=== PATIENT | male | born 1965 | race Caucasian/White ===

== ENCOUNTER 2024-09-07 22:04 | Inpatient (IN) | payer OTHER ==
[2024-09-07 22:14] LABS: Actual Bicarbonate (HCO3a) 21.8 mEq/L (22-28); Analyzer IN Cardio ER; Base Excess (BEa) -1.8 mEq/L (-2.0 to +3.0); CO2 Tension 33.1 mmHg (35.0-45.0); Calcium, Ionized (arterial) 1.06 mmol/L (1.12-1.30); Carboxyhemoglobin (COHb) 0.3 gm% (0.0-3.0); Hematocrit-ABG 34 % (42.0-52.0); Hemoglobin (Hb) 11.7 g/dL (14.0-18.0); O2 Tension (PaO2), arterial 396.1 mmHg (80.0-100.0); Potassium - ABG Lab 3.74 mmol/L (3.70-5.30); pH, Arterial 7.436 (7.35-7.45)
[2024-09-07 22:31] LABS: ALV-art Gradient 275.525 mmHg (0-20); Puncture Site Right Radial artery
[2024-09-07 22:45] LABS: Lipase 29 U/L (8-78)
[2024-09-07 22:47] LABS: Acetaminophen Less than 10 mcg/mL (Less than 10); Alcohol Less than 10.0 mg/dL (Less than 10); Hematocrit 28.7 % (42.0-52.0); Mean Corpuscular HGB CONC 38.3 g/dL (32.0-36.0); Mean Corpuscular Hemoglobin 30.1 pg (27.0-31.0); Mean Corpuscular Volume 78.4 fL (78.0-98.0); Mean Platelet Volume 10.7 fL (7.4-10.4); Platelet Count 311 10x3/uL (130-400); RBC Distribution Width 12.3 % (11.5-14.5); Red Blood Cell (RBC) Count 3.66 mill/uL (4.70-6.10); Salicylate Less than 8.0 mg/dL (Less than 8.0)
[2024-09-07 22:50] LABS: ALT (SGPT) 65 U/L (8-55); AST (SGOT) 35 U/L (5-34); Albumin 3.5 g/dL (3.5-5.0); Alkaline Phosphatase 72 U/L (40-110); Anion Gap 11 mmol/L (10-20); BUN (Urea Nitrogen) 15 mg/dL (8.4-25.7); Bilirubin, Total 0.6 mg/dL (0.2-1.2); CK (CPK) 58 U/L (30-200); Calc. Creatinine Clearance 0 mL/min (70-130); Calcium 7.8 mg/dL (7.8-10.44); Carbon Dioxide 23 mmol/L (22-29); Chloride 85 mmol/L (98-107); Estimated GFR 52; Globulin 2.3 g/dL (2.4-3.5); Glucose 125 mg/dL (70-105); Potassium 3.9 mmol/L (3.5-5.1); Protein, Total 5.8 g/dL (6.0-8.3); Sodium 115 mmol/L (136-145)
[2024-09-07 22:53] LABS: Troponin I Less than 0.010 ng/mL (< 0.028)
[2024-09-07 23:10] LABS: #Basophils 0.03 10x3/uL (0.0-0.2); #Eosinophils Less than 0.03 10x3/uL (0.0-0.7); %Basophils 0.3 % (0.0-1.0); %Eosinophils 0.2 % (0.0-10.0); %Lymphocytes 9.5 % (21.0-51.0); %Monocytes 10.8 % (0.0-10.0); %Neutrophils 76.8 % (42.0-75.0)
[2024-09-07 23:14] LABS: Anion Gap 9 mmol/L (10-20); BUN (Urea Nitrogen) 14 mg/dL (8.4-25.7); Calc. Creatinine Clearance 0 mL/min (70-130); Calcium 7.2 mg/dL (7.8-10.44); Carbon Dioxide 22 mmol/L (22-29); Chloride 89 mmol/L (98-107); Estimated GFR 61; Glucose 127 mg/dL (70-105); Potassium 3.3 mmol/L (3.5-5.1); Sodium 117 mmol/L (136-145)
[2024-09-07] MEDS ORDERED: fentaNYL 50 mcg/mL 1 mL Vial ONE (23:32)
[2024-09-07] MEDS ORDERED: Lorazepam 2 MG/ML VIAL SLOW IVP PRN ×2 (23:41→23:45)
[2024-09-07] MEDS ORDERED: Morphine 2 MG/ML VIAL SLOW IVP PRN (23:45)
[2024-09-07] MEDS ORDERED: DISCONTINUE PREVIOUS NARCOTIC PAIN MEDICATIONS AND BENZODIAZEPINES FS SCH (23:45)
[2024-09-07] MEDS ORDERED: Propofol BOLUS 1,000 MG/100 ML VIAL IV PRN (23:45)
[2024-09-07] MEDS ORDERED: Propofol 1,000 MG/100 ML VIAL IV PRN (23:45)
[2024-09-07] MEDS ORDERED: Fentanyl CADD 100 ML IV SCH (23:45)
[2024-09-07] MEDS ORDERED: Fentanyl BOLUS 250 ML IVPB PRN (23:45)
[2024-09-07] MEDS ORDERED: Dextrose 5% in Water 1,000 ML IV PRN (23:50)
[2024-09-07] MEDS ORDERED: Dextrose 50% Abboject 50 ML SYRINGE SLOW IVP PRN (23:50)
[2024-09-07] MEDS ORDERED: Insulin Lispro 100 UNIT/ML 10 ML VIAL SC PRN ×2 (23:50)
[2024-09-07] MEDS ORDERED: Electrolyte Replacement Protocol 1 EACH FS PRN (23:50)
[2024-09-07] MEDS ORDERED: Glucagon 1 MG/ML KIT IM PRN (23:50)
[2024-09-08] MEDS ORDERED: Dexamethasone 10 MG/ML VIAL ONE (00:08)
[2024-09-08] MEDS ORDERED: levETIRAcetam 500 MG (5 mL) VIAL ONE (00:09)
[2024-09-08 00:23] LABS: Bacteria/HPF None Seen HPF (None Seen); Bilirubin Negative (Negative); Blood, Urine Negative (Negative); CAUTI Indications for Culture Alt mental st,lethar; Clarity Clear (Clear); Glucose, Urine (Dipstick) 30 mg/dL (Negative); Ketone, Urine Negative (Negative); Leukocyte Negative Leu/uL (Negative); Nitrite Negative (Negative); Protein, Urine (Dipstick) 30 mg/dL (Neg-Trace); RBC/HPF 0-3 HPF (0-3); Specific Gravity, Urine 1.013 (1.002-1.036); Squamous Epithelial 0-3 HPF (0-3); Urobilinogen Normal mg/dL (Less than 2); WBC/HPF 0-3 HPF (0-3)
[2024-09-08 00:24] LABS: Urine Culture Reflex No No
[2024-09-08] MEDS ORDERED: fentaNYL 50 mcg/mL 1 mL Vial ONE (00:25)
[2024-09-08 00:30] LABS: Amphetamine Not Detected (NotDetected); Barbiturates Screen Not Detected (NotDetected); Benzodiazepine Screen Not Detected (NotDetected); Cocaine Metabolite Screen Not Detected (NotDetected); Methadone Not Detected (NotDetected); Methamphetamine Not Detected (NotDetected); Opiate Screen Not Detected (NotDetected); Oxycodone Screen Not Detected (NotDetected); Phencyclidine (PCP) Not Detected (NotDetected); THC/Cannabinoid Screen Not Detected (NotDetected); Tricyclic Screen Not Detected (NotDetected)
[2024-09-08] MEDS ORDERED: Acetaminophen 650 MG Suppository PR PRN (00:44)
[2024-09-08] MEDS ORDERED: Acetaminophen 325 MG TAB PO PRN (00:44)
[2024-09-08] MEDS ORDERED: Ondansetron PF 4 MG/2 ML Vial IVP PRN (00:44)
[2024-09-08] MEDS ORDERED: Ondansetron ODT 4 MG TAB PO PRN (00:44)
[2024-09-08] MEDS ORDERED: Calcium Carbonate 500 MG ChewTAB PO PRN (00:44)
[2024-09-08] MEDS ORDERED: Propofol 1,000 MG/100 ML VIAL IV ONE (01:39)
[2024-09-08 01:40] LABS: Sodium 117 mmol/L (136-145)
[2024-09-08] MEDS ORDERED: Lorazepam 2 MG/ML VIAL ONE (01:52)
[2024-09-08 04:04] LABS: Anion Gap 9 mmol/L (10-20); BUN (Urea Nitrogen) 14 mg/dL (8.4-25.7); Calc. Creatinine Clearance 0 mL/min (70-130); Calcium 7.6 mg/dL (7.8-10.44); Carbon Dioxide 23 mmol/L (22-29); Chloride 89 mmol/L (98-107); Estimated GFR 66; Glucose 133 mg/dL (70-105); Magnesium 1.6 mg/dL (1.6-2.6); Potassium 3.9 mmol/L (3.5-5.1); Sodium 117 mmol/L (136-145)
[2024-09-08 04:08] LABS: #Basophils Less than 0.03 10x3/uL (0.0-0.2); #Eosinophils Less than 0.03 10x3/uL (0.0-0.7); %Basophils 0.1 % (0.0-1.0); %Lymphocytes 7.4 % (21.0-51.0); %Monocytes 3.1 % (0.0-10.0); %Neutrophils 87.4 % (42.0-75.0); Hematocrit 27.3 % (42.0-52.0); Hemoglobin 10.6 g/dL (14.0-18.0); Mean Corpuscular HGB CONC 38.8 g/dL (32.0-36.0); Mean Corpuscular Hemoglobin 30.6 pg (27.0-31.0); Mean Corpuscular Volume 78.9 fL (78.0-98.0); Mean Platelet Volume 10.4 fL (7.4-10.4); Platelet Count 275 10x3/uL (130-400); RBC Distribution Width 12.5 % (11.5-14.5); Red Blood Cell (RBC) Count 3.46 mill/uL (4.70-6.10)
[2024-09-08] MEDS: Ventilator Sedation Protocol 1 EACH FS ONE (04:21)
[2024-09-08] MEDS: Sodium Chloride 3% 500 ML IVPB SCH (04:21)
[2024-09-08] MEDS: Magnesium 2 GM/50 ML(in water) 2 GM in Premix 1 BAG IVPB SCH (04:22)
[2024-09-08] MEDS: Piperacillin/Tazobactam 3.375 GM in Sodium Chloride 0.9% 100 ML IVPB SCH ×2 (04:22→05:51)
[2024-09-08] MEDS: Potassium Chloride 20 MEQ in Premix 1 BAG IVPB SCH (04:23)
[2024-09-08 05:11] VITALS: BMI 35.4
[2024-09-08 05:45] LABS: Sodium 119 mmol/L (136-145)
[2024-09-08 07:33] LABS: Sodium 118 mmol/L (136-145)
[2024-09-08] MEDS: Heparin 5,000 UNITS/ML VIAL SC SCH (09:09)
[2024-09-08] MEDS: Famotidine/PF 20 mg/2ml Vial SLOW IVP SCH (09:09)
[2024-09-08] MEDS: FLU (Fluarix Triv) TS24-25(6MOS UP)/PF 45 MCG/0.5 ML Syringe IM ONE (09:09)
[2024-09-08] MEDS: Famotidine 20 MG TAB PER TUBE SCH (09:10)
[2024-09-08 10:12] LABS: Sodium 123 mmol/L (136-145)
[2024-09-08 13:17] LABS: Sodium 125 mmol/L (136-145)
[2024-09-08 20:04] LABS: Anion Gap 11 mmol/L (10-20); BUN (Urea Nitrogen) 10 mg/dL (8.4-25.7); Calc. Creatinine Clearance 140 mL/min (70-130); Calcium 8.3 mg/dL (7.8-10.44); Carbon Dioxide 22 mmol/L (22-29); Chloride 99 mmol/L (98-107); Estimated GFR 88; Glucose 99 mg/dL (70-105); Potassium 4.1 mmol/L (3.5-5.1); Sodium 128 mmol/L (136-145)
[2024-09-08] MEDS: Dextrose 5% in Water 1,000 ML IV SCH (21:19)
[2024-09-09 05:25] LABS: #Basophils Less than 0.03 10x3/uL (0.0-0.2); #Eosinophils Less than 0.03 10x3/uL (0.0-0.7); %Basophils 0.2 % (0.0-1.0); %Eosinophils 0.1 % (0.0-10.0); %Lymphocytes 12.7 % (21.0-51.0); %Neutrophils 77.2 % (42.0-75.0); Hematocrit 29.6 % (42.0-52.0); Hemoglobin 10.6 g/dL (14.0-18.0); Mean Corpuscular HGB CONC 35.8 g/dL (32.0-36.0); Mean Corpuscular Hemoglobin 30.3 pg (27.0-31.0); Mean Corpuscular Volume 84.6 fL (78.0-98.0); Mean Platelet Volume 10.4 fL (7.4-10.4); Platelet Count 316 10x3/uL (130-400); RBC Distribution Width 12.9 % (11.5-14.5)
[2024-09-09 05:51] LABS: Anion Gap 11 mmol/L (10-20); BUN (Urea Nitrogen) 10 mg/dL (8.4-25.7); Calc. Creatinine Clearance 156 mL/min (70-130); Calcium 8.3 mg/dL (7.8-10.44); Carbon Dioxide 22 mmol/L (22-29); Chloride 100 mmol/L (98-107); Estimated GFR 99; Glucose 104 mg/dL (70-105); Potassium 4.3 mmol/L (3.5-5.1); Sodium 129 mmol/L (136-145)
[2024-09-09 09:41] LABS: Hematocrit 30.1 % (42.0-52.0); Hemoglobin 10.9 g/dL (14.0-18.0); Mean Corpuscular HGB CONC 36.2 g/dL (32.0-36.0); Mean Corpuscular Hemoglobin 30.4 pg (27.0-31.0); Mean Corpuscular Volume 83.8 fL (78.0-98.0); Mean Platelet Volume 10.4 fL (7.4-10.4); Platelet Count 310 10x3/uL (130-400); RBC Distribution Width 12.9 % (11.5-14.5); Red Blood Cell (RBC) Count 3.59 mill/uL (4.70-6.10)
[2024-09-09] MEDS: hydrALAZINE 20 MG/ML VIAL SLOW IVP PRN (10:11)
[2024-09-09] MEDS: DC Sedation Protocol FS ONE (10:27)
[2024-09-09 10:49] LABS: Anion Gap 10 mmol/L (10-20); BUN (Urea Nitrogen) 10 mg/dL (8.4-25.7); Calc. Creatinine Clearance 170 mL/min (70-130); Calcium 8.2 mg/dL (7.8-10.44); Carbon Dioxide 23 mmol/L (22-29); Chloride 99 mmol/L (98-107); Estimated GFR 102; Glucose 100 mg/dL (70-105); Potassium 4.1 mmol/L (3.5-5.1); Sodium 128 mmol/L (136-145)
[2024-09-09 14:41] VITALS: BMI 35.2
[2024-09-09 19:55] LABS: Anion Gap 10 mmol/L (10-20); BUN (Urea Nitrogen) 12 mg/dL (8.4-25.7); Calc. Creatinine Clearance 151 mL/min (70-130); Calcium 8.5 mg/dL (7.8-10.44); Carbon Dioxide 24 mmol/L (22-29); Chloride 99 mmol/L (98-107); Estimated GFR 98; Glucose 108 mg/dL (70-105); Hemoglobin A1c 4.7 % (4.0-6.0); Potassium 4.3 mmol/L (3.5-5.1); Sodium 129 mmol/L (136-145)
[2024-09-09] MEDS: Enoxaparin 30 MG (0.3 mL) SYRINGE SC SCH (20:22)
[2024-09-09] MEDS: Carvedilol 6.25 MG TAB PO SCH (20:23)
[2024-09-09] MEDS: carBAMazepine 200 MG TAB PO SCH (20:23)
[2024-09-09] MEDS: levETIRAcetam 500 MG TAB PO SCH (20:24)
[2024-09-09] MEDS: hydrALAZINE 25 MG TAB PO SCH (20:24)
[2024-09-09] MEDS: Gabapentin 300 MG CAP PO SCH (20:24)
[2024-09-10 06:30] LABS: Anion Gap 11 mmol/L (10-20); BUN (Urea Nitrogen) 10 mg/dL (8.4-25.7); Calc. Creatinine Clearance 180 mL/min (70-130); Calcium 8.3 mg/dL (7.8-10.44); Carbon Dioxide 23 mmol/L (22-29); Chloride 99 mmol/L (98-107); Estimated GFR 104; Glucose 90 mg/dL (70-105); Potassium 4.4 mmol/L (3.5-5.1); Sodium 129 mmol/L (136-145)
[2024-09-10 08:58] LABS: Hematocrit 31.2 % (42.0-52.0); Hemoglobin 11.1 g/dL (14.0-18.0); Mean Corpuscular HGB CONC 35.6 g/dL (32.0-36.0); Mean Corpuscular Hemoglobin 29.9 pg (27.0-31.0); Mean Corpuscular Volume 84.1 fL (78.0-98.0); Mean Platelet Volume 9.6 fL (7.4-10.4); Platelet Count 318 10x3/uL (130-400); RBC Distribution Width 12.6 % (11.5-14.5); Red Blood Cell (RBC) Count 3.71 mill/uL (4.70-6.10)
[2024-09-10] MEDS: Clopidogrel Bisulfate 75 MG TAB PO SCH (09:05)
[2024-09-10] MEDS: Aspirin 325 mg Enteric Coated Tablet PO SCH (09:05)
[2024-09-10] MEDS: Oxybutynin 5 MG TAB PO SCH (09:05)
[2024-09-10] MEDS: Lisinopril 20 MG TAB PO SCH (09:05)
[2024-09-10] MEDS: Pantoprazole 40 MG DR.TAB PO SCH (09:05)
[2024-09-10] MEDS: Ziprasidone 20 MG CAP PO SCH (09:05)
[2024-09-10] MEDS: Isosorbide Mononitrate 30 MG ER.TAB PO SCH (09:05)
[2024-09-10] MEDS: Atorvastatin Calcium 40 MG TAB PO SCH (09:06)
[2024-09-10] MEDS: Sertraline 25 MG TAB PO SCH (09:06)
[2024-09-10] MEDS: Furosemide 40 MG TAB PO SCH (16:35)
[2024-09-10] MEDS: Amlodipine 10 MG TAB PO SCH (16:36)
[2024-09-10 16:56] LABS: Anion Gap 9 mmol/L (10-20); BUN (Urea Nitrogen) 11 mg/dL (8.4-25.7); Calc. Creatinine Clearance 184 mL/min (70-130); Calcium 8.3 mg/dL (7.8-10.44); Carbon Dioxide 24 mmol/L (22-29); Chloride 102 mmol/L (98-107); Estimated GFR 105; Glucose 103 mg/dL (70-105); Potassium 4.2 mmol/L (3.5-5.1); Sodium 131 mmol/L (136-145)
[2024-09-11 06:06] LABS: ALT (SGPT) 56 U/L (8-55); AST (SGOT) 27 U/L (5-34); Albumin 3.2 g/dL (3.5-5.0); Alkaline Phosphatase 60 U/L (40-110); Anion Gap 10 mmol/L (10-20); BUN (Urea Nitrogen) 11 mg/dL (8.4-25.7); Bilirubin, Total 0.4 mg/dL (0.2-1.2); Calc. Creatinine Clearance 163 mL/min (70-130); Calcium 8.6 mg/dL (7.8-10.44); Carbon Dioxide 25 mmol/L (22-29); Chloride 100 mmol/L (98-107); Estimated GFR 101; Globulin 3.1 g/dL (2.4-3.5); Glucose 90 mg/dL (70-105); Magnesium 1.8 mg/dL (1.6-2.6); Potassium 4.2 mmol/L (3.5-5.1); Protein, Total 6.3 g/dL (6.0-8.3); Sodium 131 mmol/L (136-145)
[2024-09-11 07:45] VITALS: BP 163/79; TEMP 98.3
[2024-09-11 08:37] LABS: Hematocrit 30.6 % (42.0-52.0); Hemoglobin 10.7 g/dL (14.0-18.0); Mean Corpuscular Hemoglobin 29.9 pg (27.0-31.0); Mean Corpuscular Volume 85.5 fL (78.0-98.0); Mean Platelet Volume 9.4 fL (7.4-10.4); Platelet Count 298 10x3/uL (130-400); RBC Distribution Width 12.6 % (11.5-14.5); Red Blood Cell (RBC) Count 3.58 mill/uL (4.70-6.10)
[2024-09-11] MEDS: Furosemide 40 MG TAB PO SCH (08:40)
[2024-09-11] MEDS: Amlodipine 10 MG TAB PO SCH (08:40)
[2024-09-11] MEDS: Magnesium 2 GM/50 ML(in water) 2 GM in Premix 1 BAG IVPB SCH (08:41)
== END 2024-09-11 15:52 | DRG 208 ==
LOC: ERS 22:04 → CCU 22:42 → EEVIPCON 22:42 → CCU 09-08 02:02 → T4-A 09-09 12:24
PROVIDERS: ADMIT Student in an Organized Health Care Education/Training Program; ATTEND Internal Medicine
PROC: 4A033R1 Measurement of Arterial Saturation, Peripheral, Percutaneous Approach (ICD-10-PCS; 2024-09-07)
PROC: 5A1935Z Respiratory Ventilation, Less than 24 Consecutive Hours (ICD-10-PCS; principal; 2024-09-08)
PROC: XX20X89 Monitoring of Brain Electrical Activity, Computer-aided Detection and Notification, New Technology Group 9 (ICD-10-PCS; 2024-09-08)
DX: J96.01 Acute respiratory failure with hypoxia (principal); G93.41 Metabolic encephalopathy; I50.32 Chronic diastolic (congestive) heart failure; N17.9 Acute kidney failure, unspecified; I13.0 Hypertensive heart and chronic kidney disease with heart failure and stage 1 through stage 4 chronic kidney disease, or unspecified chronic kidney disease; E22.2 Syndrome of inappropriate secretion of antidiuretic hormone; R00.1 Bradycardia, unspecified; G40.909 Epilepsy, unspecified, not intractable, without status epilepticus; G89.29 Other chronic pain; E78.5 Hyperlipidemia, unspecified; F41.9 Anxiety disorder, unspecified; F32.A Depression, unspecified; T50.2X5A Adverse effect of carbonic-anhydrase inhibitors, benzothiadiazides and other diuretics, initial encounter; K21.9 Gastro-esophageal reflux disease without esophagitis; E87.6 Hypokalemia; N18.2 Chronic kidney disease, stage 2 (mild); D64.9 Anemia, unspecified; Z99.3 Dependence on wheelchair; I25.10 Atherosclerotic heart disease of native coronary artery without angina pectoris
CPT/HCPCS: 31500; 36415; 36416; 36556; 36600; 43753; 51702; 70450; 71045; 76770; 80048; 80053; 80156; 80177; 80306; 80307; 81001; 82533; 82550; 82805; 83036; 83605; 83690; 83735; 83880; 84145; 84146; 84295; 84443; 84484; 85025; 85027; 87040; 93005; 94002; 94003; 95705; 96361; 96365; 96367; 96375; 97139; J0360; J1100; J1644; J1650; J1953; J2060; J2543; J2704; J3010; J3475; J3480; J3490; J7070; J7131